=== PATIENT | male | born 1965 | race African-American/Black ===

== ENCOUNTER 2017-09-05 23:21 | Emergency (ER) | payer BC ==
[2017-09-05 23:50] LABS: Bilirubin Small (Negative); Blood, Urine Large (Negative); Clarity Turbid (Clear); Glucose, Urine (Dipstick) Negative (Negative); Leukocyte Trace (Negative); Nitrite Negative (Negative); Protein, Urine (Dipstick) > or equal to 300 mg/dL (Neg-Trace); Urobilinogen 0.2 mg/dL (0.2-1.0); pH, Urine 5.5 (5.0-9.0)
[2017-09-05 23:52] LABS: Specific Gravity, Urine 1.032 (1.002-1.036)
[2017-09-06 00:05] LABS: Bacteria/HPF 1+ HPF (None Seen); Hyaline Casts/LPF 0-3 HYALINE CAST LPF (0-3 Hyaline); RBC/HPF GREATER THAN 50-TNTC HPF (0-3); Yeast-All Forms Rare HPF (None Seen)
[2017-09-06] MEDS ORDERED: Cipro 250 MG TAB ONE (00:05)
== END 2017-09-06 00:11 | disposition home or self-care (01) ==
LOC: SCSER 23:21
DX: N30.01 Acute cystitis with hematuria (principal); I10 Essential (primary) hypertension; E11.9 Type 2 diabetes mellitus without complications; Z79.899 Other long term (current) drug therapy
CPT/HCPCS: 81003; 81015; 87077; 87086; 87186; 99283

== ENCOUNTER 2024-09-23 11:21 | Outpatient (CLI) | payer BC | END 2024-09-23 11:22 | disposition home or self-care (01) | LOC: BICULT 11:21 | PROVIDERS: ATTEND Urology | DX: I10 Essential (primary) hypertension (principal); Z80.51 Family history of malignant neoplasm of kidney | CPT/HCPCS: 76770 ==

== ENCOUNTER 2025-06-09 15:04 | Outpatient (CLI) | payer BC | END 2025-06-09 15:05 | disposition home or self-care (01) | LOC: BICRAD 15:04 | PROVIDERS: ATTEND Family Medicine | DX: M47.12 Other spondylosis with myelopathy, cervical region (principal) | CPT/HCPCS: 72050 ==

== ENCOUNTER 2025-07-22 14:58 | Outpatient (CLI) | payer BC | END 2025-07-22 14:59 | disposition home or self-care (01) | LOC: ULT 14:58 | PROVIDERS: ATTEND Nurse Practitioner Family | DX: N50.812 Left testicular pain (principal); N45.1 Epididymitis | CPT/HCPCS: 76870; 93976 ==